=== PATIENT | male | born 1990 | race African-American/Black ===

== ENCOUNTER 2021-04-26 02:31 | Emergency (ER) | payer MEDICAID ==
[~2021-04-26] VITALS: Ht 180.3 cm; Wt 81.8 kg
[2021-04-26] MEDS ORDERED: SULF1TAB42 PO (02:53)
[2021-04-26] MEDS ORDERED: CEPH125S23 PO (02:53)
[2021-04-26 06:05] VITALS: BP 139/88
== END 2021-04-26 11:49 | disposition home or self-care (01) ==
LOC: EMS 02:32
DX: F41.0 Panic disorder [episodic paroxysmal anxiety] (principal); Z22.322 Carrier or suspected carrier of Methicillin resistant Staphylococcus aureus; Z79.899 Other long term (current) drug therapy
CPT/HCPCS: 99283; Z7502

== ENCOUNTER 2022-05-13 10:10 | Emergency (ER) | payer MEDICAID ==
[~2022-05-13] VITALS: Ht 182.9 cm; Wt 79.5 kg
[~2022-05-13 10:10] MED LIST: CEPH125S23 PO; SULF1TAB42 PO
[2022-05-13 10:24] VITALS: BP 161/98
== END 2022-05-13 10:41 ==
LOC: EMS 10:12
DX: M79.671 Pain in right foot (principal); F41.9 Anxiety disorder, unspecified; Z86.14 Personal history of Methicillin resistant Staphylococcus aureus infection
CPT/HCPCS: 99285; Z7502